=== PATIENT | female | born 1955 | race Caucasian/White ===

== ENCOUNTER → 2021-04-05 14:15 | Outpatient (CLI) | payer MEDICARE, MEDICAID, SELFPAY ==
--- NOTE | 2021-04-05 14:18 | CT_ITS ---
STUDY: LOW DOSE CT LUNG CANCER SCREENING REASON FOR EXAM: Female, 65 years old. LUNG CA SCREENING. The patient smoked half a pack per day for 51 years. RADIATION DOSAGE (If Supplied By Facility): CTDIvol = ( 1.59 ) mGy, DLP = ( 52.61 ) mGycm TECHNIQUE: No contrast was administered. Low dose technique was utilized (average mAS-38 and kVp 120). 1.25 mm axial source images with a slice interval of 1.25-mm were reconstructed in lung windows. 2.5 mm axial source images with a slice interval of 2.5-mm were reconstructed in lung windows. 5.0 mm axial source images with a slice interval of 5.0-mm were reconstructed in soft tissue windows. Nodule measured using lung windows on PACS and/or independent workstation with automated measurement of minimum and maximum diameter. Nodule measurement reported as average diameter rounded to the nearest whole number. Growth is defined as an increase ins size of greater than 1.5 mm. COMPARISON: None. NODULES: No suspicious nodules are seen. Emphysema: Hyperinflation. Diffuse emphysematous changes with bullous formation worse in the upper lobes. Minimal linear anterior scarring in the left upper lobe. Minimal linear scarring in the lower lobes. Endobronchial lesion: None Aorta: Minimal atherosclerotic plaque formation at the level of the aortic arch. Coronary arteries: Coronary artery calcification. Heart: Unremarkable Pulmonary artery: Unremarkable Mediastinal nodes: Unremarkable Other chest and abdominal findings: CT/Low Dose CT Lung Screening IMPRESSION: Lung-RADS category 2 - Continue annual screening with LDCT in 12 months. IMPORTANT NOTES FOR USE: ACR Lung-RADS Version 1.1 Assessment Categories Release Date: 2018 Category: Coded 0-4 bases on nodule(s) with highest degree of suspicion. Negative screen is defined as categories 1 and 2; a positive screen is defined as categories 3 and 4. Category 3 and 4A nodules that are unchanged on interval CT should be coded as category 2, and individuals returned to screening in 12 months. Category 4X: Category 3 or 4 nodules with additional imaging findings that increase the suspicion of lung cancer, such as spiculation, GGN that doubles in size in 1 year, enlarged lymph notes, etc. Category Modifiers: S (significant finding unrelated to lung cancer) Electronically Signed: Javy Mccormick MD at 15:01 EST , Service support ,
== END ==
PROVIDERS: PCP Family Medicine; Referring Provider Family Medicine; Visit Provider Family Medicine
DX: F17.210 Nicotine dependence, cigarettes, uncomplicated (principal); Z12.2 Encounter for screening for malignant neoplasm of respiratory organs
CPT/HCPCS: 71271

== ENCOUNTER → 2021-04-14 14:27 | Outpatient (CLI) | payer MEDICARE, MEDICAID, SELFPAY ==
--- NOTE | 2021-04-14 14:30 | BI_ITS ---
MAMMOGRAPHY - BILATERAL SCREENING REASON FOR EXAM: Female, 65 years old. Routine annual screening examination. PERTINENT HISTORY: Non-contributory. TECHNIQUE: Digital bilateral breast tony (3D mammographic acquisition) in the CC and MLO projections. 2-D mediolateral oblique (MLO) and craniocaudad (CC) views of both breasts were obtained. CAD: Full Field Digital Mammography with Computer Added Detection was performed. COMPARISON: Comparison is made with prior outside examination dated 06/16/2017. FINDINGS: Breast Composition: The breasts are heterogeneously dense, which may obscure small masses. There are no dominant masses or suspicious calcifications. Stable small benign-appearing bilateral axillary lymph nodes. No other significant abnormalities are identified. There has been no significant change since the prior study. BI/SCRN MAMM (CAD)W/TONY BILAT IMPRESSION: Stable bilateral screening mammogram. Yearly follow-up mammogram recommended. (A) ASSESSMENT CATEGORY: BIRADS Category 2: Benign. A letter regarding these results will be sent to the patient by the facility within 30 days. Approximately 10% of breast cancers are not detected by mammography. A normal mammogram should not delay biopsy of a clinically suspicious abnormality. [id number] Electronically Signed: Javy Mccormick MD at 13:59 EST , Service support ,
== END ==
PROVIDERS: PCP Family Medicine; Referring Provider Family Medicine; Visit Provider Family Medicine
DX: Z12.31 Encounter for screening mammogram for malignant neoplasm of breast (principal)
CPT/HCPCS: 77063; 77067

== ENCOUNTER → 2021-10-29 | Outpatient (CLI) | payer OTHER, MEDICAID, SELFPAY ==
[2021-10-29 11:23] LABS: Hematocrit 44.1 % (37-47); Hemoglobin 15.1 g/dL (12.0-15.0); Mean Corp Hgb Conc 34.2 g/dL (32-36); Mean Corpuscular Hgb 31.8 pg (27.0-32.0); Mean Corpuscular Volume 92.8 fL (81-99); Mean Platelet Vol. 10.2 fl (6.2-12.0); Platelet Count 246 K/mm3 (150-450); RBC Distribution Width CV 11.7 % (11.6-14.6); Red Blood Count 4.75 M/mm3 (4.2-5.4); White Blood Count 5.8 K/mm3 (4.4-11.0)
[2021-10-29 12:27] LABS: ALB/GLOB Ratio 1.4 RATIO (0.9-2.4); AST(SGOT) 13 U/L (15-37); Alanine Aminotransfer ALT/SGPT 19 U/L (13-56); Alkaline Phosphatase 68 U/L (45-117); Anion Gap 1 (5-15); BUN 7 mg/dL (7-18); BUN/Creat Ratio 9.1 RATIO (10-20); Calcium,Total 9.1 mg/dL (8.5-10.1); Chloride 105 mmol/L (98-107); Cholesterol 181 mg/dL (200); Creatinine, Serum 0.77 mg/dL (0.55-1.02); EST Glomerular Filtration Rate 80 mL/min (>60); Est Glom Filt Rate - Afr Amer 97 mL/min (>60); Globulin 2.8 g/dL (2.2-4.2); Glucose 99 mg/dL (74-106); High Density Lipoprotein 75 mg/dL; Potassium 4.3 mmol/L (3.5-5.1); Protein, Total 6.8 g/dL (6.4-8.2); Sodium Level 139 mmol/L (136-145); Triglycerides 89 mg/dL; Very Low Density Lipoprotein 18 mg/dL (5-40)
[2021-11-05 08:10] LABS: Free Kappa Light Chains 13.5 mg/L (3.3-19.4); Free Lambda Light Chains 12.5 mg/L (5.7-26.3); Vitamin B1, Thiamine 213.1 nmol/L (66.5-200.0)
== END | disposition home or self-care (01) ==
LOC: LAB 10:45
PROVIDERS: PCP Family Medicine; Referring Provider Psychiatry & Neurology Neurology; Visit Provider Psychiatry & Neurology Neurology
DX: G62.9 Polyneuropathy, unspecified (principal)
CPT/HCPCS: 36415; 80053; 80061; 81241; 82746; 83883; 84425; 85027

== ENCOUNTER → 2021-11-15 | Outpatient (CLI) | payer MEDICARE, MEDICAID, SELFPAY ==
--- NOTE | 2021-11-15 08:04 | MRI_ITS ---
STUDY: MRI BRAIN WITH AND WITHOUT CONTRAST REASON FOR EXAM: Female, 66 years old. 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 IV 13ml dotarem was administered for the contrast portion of the examination. COMPARISON: None. FINDINGS: No intracranial mass, mass effect or midline shift. No enhancing lesion. No hemorrhage, territorial infarct or acute ischemia. Normal size of the ventricles and extra-axial spaces for the patient''s age. Normal white matter tracts of the supratentorial brain. Normal bilateral basal ganglia. Normal thalami. There is no extra-axial fluid accumulation. Normal flow voids within the major intracranial circulation suggesting patency by spin echo criteria. There is no enhancing intra-axial or extra-axial abnormality. Normal sella turcica, pituitary gland, infundibular stalk, optic chiasm and hypothalamus. Normal midbrain, maryan and medulla. Normal cerebellum. Normal basal cisterns. Normal bilateral temporal bones. Normal bilateral internal auditory canals. Normal visualized paranasal sinuses. Normal calvarium and skull base. Normal visualized soft tissue structures. MRI/Brain W/WO Contrast IMPRESSION: Normal unenhanced and enhanced MRI of the brain. Electronically Signed: Geeta Madsen MD at 22:15 EDT Reading Location ID and State: [id number] / Tel , Service support ,
== END | disposition home or self-care (01) ==
LOC: MRI 08:04
PROVIDERS: PCP Family Medicine; Referring Provider Psychiatry & Neurology Neurology; Visit Provider Psychiatry & Neurology Neurology
DX: G25.0 Essential tremor (principal); Z86.79 Personal history of other diseases of the circulatory system
CPT/HCPCS: 70553; A9575

== ENCOUNTER 2021-12-10 09:58 | Emergency (ER) | payer MEDICARE, MEDICAID, SELFPAY ==
[2021-12-10] VITALS (8 sets, daily range): BP systolic 118–136; BP diastolic 73–97; PULSE 89–106; RESP 16–24; TEMP 36.7; O2SAT 87–98; BMI 21.0
--- NOTE | 2021-12-10 10:14 | EKG12_ITS ---
Test Reason : Blood Pressure : / mmHG Vent. Rate : 085 BPM Atrial Rate : 085 BPM P-R Int : 126 ms QRS Dur : 086 ms QT Int : 382 ms P-R-T Axes : 077 032 065 degrees QTc Int : 454 ms Normal sinus rhythm Low voltage QRS (limb leads) Confirmed by JOEL CORCORAN, STARR ([id number]), research editor JASMYN JOHNSON ([id number]) on 12/14/2021 8:02:20 AM Referred By: SUZETTE Confirmed By:STARR MALDONADO MD
--- NOTE | 2021-12-10 10:15 | ED.VIS.DYS ---
HPI History of Present Illness Chief Complaint: Shortness of Breath Informant: patient Onset/Context/Timing Onset: Days (5) Context: gradual and onset Timing: Continuous Quality: Positive for Wheezing Current Severity: Moderate Maximum Severity: Severe Worsened by: Exertion and Coughing Relieved by: Albuterol (a little) Associated Symptoms cough Chest Pain: Positive for Tightness Narrative Narrative: Patient started having respiratory symptoms 5 days ago, her doctor ordered a COVID test to be done at the local pharmacy it was positive, no other family members are ill currently, they were tested and were negative. She has COPD and feels like it has been flaring up. She is on no home oxygen, she has had some chest tightness but no symptoms of angina. No history of DVT or PE and she takes no anticoagulants, she had a history of mitral valve prolapse that she states resolved but no other heart problems that she knows of, and no leg pain or swelling recently. She has no pleuritic chest discomfort. Started Paxlovid couple days ago. [facility] Medical History Allergies COPD (chronic obstructive pulmonary disease) Degenerative disc disease, cervical Fibromyalgia Generalized anxiety disorder IBS (irritable bowel syndrome) Lumbar degenerative disc disease Neuropathy Stroke Home Medications albuterol sulfate 90 mcg/actuation breath activated powder inhaler 2 inh inhalation Q4H PRN Shortness Of Breath Or Wheezing 10/27/21 [History Last Taken Unknown] clorazepate dipotassium 15 mg tablet 15 mg PO DAILY PRN Anxiety 10/27/21 [History Last Taken Unknown] cyclobenzaprine 5 mg tablet 5 mg PO TID PRN Anxiety 10/27/21 [History Last Taken Unknown] fluticasone 250 mcg-salmeterol 50 mcg/dose blistr powdr for inhalation (Advair Diskus) 1 inh inhalation BID 10/27/21 [History Last Taken Unknown] fluticasone propionate 50 mcg/actuation nasal spray,suspension 1 spray intranasal DAILY PRN Allergy Symptoms 10/27/21 [History Last Taken Unknown] ame root powder 1 tablet PO DAILY 10/27/21 [History Last Taken Unknown] hydroxyzine HCl 25 mg tablet 25 mg PO .qid PRN Anxiety 10/27/21 [History Last Taken Unknown] multivitamin 1 tab PO DAILY 10/27/21 [History Last Taken Unknown] tramadol 50 mg tablet 50 mg PO DAILY PRN Pain 10/27/21 [History Last Taken Unknown] turmeric 400 mg capsule 1,500 mg PO DAILY 10/27/21 [History Last Taken Unknown] vitamin B complex 1 tab PO DAILY 10/27/21 [History Last Taken Unknown] magnesium 250 mg tablet 250 mg PO DAILY 10/28/21 [History Last Taken Unknown] zinc acetate 50 mg (zinc) capsule 50 mg PO DAILY 10/28/21 [History Last Taken Unknown] prednisone 10 mg tablet 10 mg PO UD #33 tabs 12/10/21 [Rx Last Taken Unknown] Allergy/AdvReac Type Severity Reaction Status Date / Time amitriptyline Allergy Unknown Itching Verified 12/10/21 10:11 aspirin Allergy Unknown Swelling Verified 12/10/21 10:11 bupropion Allergy Unknown Itching Verified 12/10/21 10:11 celecoxib Allergy Unknown Swelling Verified 12/10/21 10:11 duloxetine Allergy Unknown Shortness Verified 12/10/21 10:11 of breath fluoxetine Allergy Unknown Nausea Verified 12/10/21 10:11 sertraline Allergy Unknown Hives Verified 12/10/21 10:11 fluticasone AdvReac Unknown Itching Verified 12/10/21 10:11 guaifenesin AdvReac Unknown Rash Verified 12/10/21 10:11 meloxicam AdvReac Unknown dizziness Verified 12/10/21 10:11 salmeterol AdvReac Unknown Itching Verified 12/10/21 10:11 Family History (Updated 10/28/21 @ 08:28 by Kathryn Corea) Grandmother No problems noted. 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 Smoking Status: Current every day smoker tobacco type: cigarettes second hand exposure: No alcohol intake: current alcohol intake frequency: holidays/special occasions only substance use type: does not use what type of physical activity do you participate in: none grecia/sabianism: Jew seatbelt use: always ROS ROS ED Constitutional Constitutional ED: Reports body ache(s), chills, fatigue, fever(s) and malaise; Denies headache(s) Eyes Eyes: Denies change in vision or diplopia ENT ENT ED: Denies rhinorrhea or sore throat Cardiovascular Cardiovascular: Reports other Details: Chest tightness no anginal ; Denies chest pain, leg edema or palpitations Respiratory/Chest Respiratory/Chest: Reports cough, dyspnea, dyspnea on exertion and wheezing Gastrointestinal Gastrointestinal: Reports diarrhea; Denies abdominal pain, nausea or vomiting Genitourinary Genitourinary ED: Denies dysuria or hematuria Musculoskeletal Musculoskeletal: Denies back pain or neck pain Integumentary Denies abscess or rash Neurologic Neurologic: Denies headache(s), paresthesias or weakness Psychiatric Psychiatric: Denies anxiety or suicidal thoughts EXAM Physical Exam Const Vital Signs: 12/10/21 10:00 12/10/21 10:06 12/10/21 10:13 Temperature 98.1 F 98.1 F Temperature Source Oral Oral Pulse Rate 94 94 Respiratory Rate 22 H 22 H Respiratory Effort Short of Breath Labored Respiratory Depth Normal Respiratory Pattern Tachypnea Blood Pressure 119/86 H 119/86 H Blood Pressure Mean 97 97 Pulse Ox 97 97 Oxygen Delivery Method Nasal Cannula Nasal Cannula Nasal Cannula Oxygen Flow Rate (L/min) 2 2 2 12/10/21 11:06 12/10/21 10:53 12/10/21 12:27 Temperature 98.1 F Temperature Source Oral Pulse Rate 89 106 H 93 Respiratory Rate 16 24 H 18 Respiratory Effort Respiratory Depth Respiratory Pattern Tachypnea Blood Pressure 118/97 H 121/73 H Blood Pressure Mean 104 89 Pulse Ox 98 92 Oxygen Delivery Method Nasal Cannula Room Air Oxygen Flow Rate (L/min) 2 Positive well nourished and well developed Constitutional Narrative: Malaised-appearing, no distress General Appearance ED: well developed and NAD HEENT Reports moist mucous membranes normocephalic and atraumatic Eyes PERRL and EOMs intact bilaterally Neck full ROM and supple Resp Resp Narrative: Expiratory wheezing throughout with prolonged expiratory phase. Equal breath sounds bilaterally. Tachypneic, mild respiratory distress. Cardio regular rate, regular rhythm and no murmurs Rate: Negative for tachycardic GI non-tender and non-distended Auscultation: normoactive bowel sounds Palpation: soft Back/Spine no CVA tenderness General Back: other FROM Extremity normal to inspection and no calf tenderness General Extremety ED: Negative for edema, pulses abnormal or tenderness General Extremity: Negative for edema or pulses abnormal Neuro oriented x3, CN's II-XII intact bilaterally and no sensory deficits noted Sensorium / Orientation: awake and alert Motor Exam: strength 5/5 throughout Skin no rashes or lesions noted and no wounds MDM MDM MDM Narrative Medical decision making narrative: Chest x-ray 1 view on my interpretation shows hyperexpansion/COPD but no acute abnormalities. Radiology in agreement. Her EKG is unremarkable, troponin is within normal limits and her D-dimer is normal as well ruling out pulmonary embolus acutely. After nebulizer treatments, she is oxygenating better and resting at 92% on room air. When she gets up and around in the room, she desats to about 90%. She was 88% prior to this on room air. She is not on home oxygen. I think the majority of her symptoms are her COPD exacerbation, certainly she feels poorly from COVID but with regards to her breathing and pulmonary symptoms, it is more her COPD. Since she has COVID, I can get her oxygen for at home, she prefers to go home on steroids and oxygen to use as needed, she has nebulizers to use at home as needed, and I do not think admitting her to the hospital will necessarily benefit her she is comfortable with that overall plan we discussed reasons to return. Lab Data Attestation: I reviewed the patient's lab results. Labs: Laboratory Results - last 24 hr 12/10/21 12/10/21 12/10/21 10:08 10:08 10:08 WBC 4.6 RBC 4.60 Hgb 14.9 Hct 42.5 MCV 92.4 MCH 32.4 H MCHC 35.1 RDW Std Deviation 40.1 RDW Coeff of James 11.9 Plt Count 182 MPV 10.4 Immature Gran % (Auto) 0.400 Neut % (Auto) 68.8 Lymph % (Auto) 21.0 [place] % (Auto) 9.6 Eos % (Auto) 0.0 Baso % (Auto) 0.2 Absolute Neuts (auto) 3.1 Absolute Lymphs (auto) 0.96 Nucleated RBC % 0 D-Dimer Quant (PE/DVT) 0.42 Sodium 136 Potassium 4.0 Chloride 101 Carbon Dioxide 29.0 Anion Gap 6 BUN 8 Creatinine 0.74 Estim Creat Clear Calc 73.96 Est GFR (MDRD) Af Amer 102 Est GFR (MDRD) Non-Af 85 BUN/Creatinine Ratio 10.9 Glucose 119 H Calcium 9.0 Troponin I High Sens 4 Radiography Diagnostic Testing: Clinical Impression(s) from Imaging Studies Chest X-Ray 12/10/21 11:06 IMPRESSION: Hyperinflation and changes compatible with COPD. Electronically Signed: Javy Mccormick MD at 11:57 EDT , Rhythm Strip Rhythm Strip: Sinus Rhythm Rate: 85 Ectopy: None EKG Initial EKG: Attestation: I personally reviewed and interpreted this EKG as follows: Interpretation: Sinus Rhythm and No Acute Injury Pattern Comments: Normal EKG Discharge Plan Triage Chief Complaint: Shortness of Breath ED Provider: Howard Cronin Dx/Rx/DC Orders Clinical Impression: Acute exacerbation of chronic obstructive pulmonary disease, Hypoxemia, COVID-19 Instructions: Coronavirus Disease 2019 (COVID-19): Caring for Yourself or Others, ED COPD Flare Prescriptions: New prednisone 10 mg tablet 10 mg PO UD Qty: 33 0RF Rx Instructions: Take 4 tablets daily for 3 days, then 3 daily for 3 days, then 2 daily for 3 days, then 1 a day for 3 days then 1 QOD for 3 doses. No Action fluticasone propion-salmeterol [Advair Diskus] 250-50 mcg/dose blister with device 1 inh inhalation BID albuterol sulfate 90 mcg/actuation aerosol powdr breath activated 2 inh inhalation Q4H PRN (Reason: Shortness Of Breath Or Wheezing) clorazepate dipotassium 15 mg tablet 15 mg PO DAILY PRN (Reason: Anxiety) cyclobenzaprine 5 mg tablet 5 mg PO TID PRN (Reason: Anxiety) fluticasone propionate 50 mcg/actuation spray,suspension 1 spray intranasal DAILY PRN (Reason: Allergy Symptoms) Rx Instructions: administer into each nostril ame root powder tablet 1 tablet PO DAILY hydroxyzine HCl 25 mg tablet 25 mg PO .qid PRN (Reason: Anxiety) tramadol 50 mg tablet 50 mg PO DAILY PRN (Reason: Pain) multivitamin Tablet 1 tab PO DAILY turmeric 400 mg capsule 1,500 mg PO DAILY vitamin B complex Tablet 1 tab PO DAILY zinc acetate 50 mg (zinc) capsule 50 mg PO DAILY magnesium 250 mg tablet 250 mg PO DAILY Primary Care Provider: Cheyenne Richards Referrals: Cheyenne Richards MD [Primary Care Provider] - 10-14 Days if not better Activity Restrictions/Additional Instructions: Try to get a home portable pulse oximeter and closely watch your oxygen levels periodically. If you stay below 90% for more than a minute or so, and/or you are feeling like your breathing is getting worse despite turning your oxygen up to 3 L, using nebulizer treatments, and taking your prednisone, return to the emergency department for further evaluation. Currently, CDC recommendations state that you should stay home through day 5 of symptoms, then as long as symptoms are improving, if you need to go to work or somewhere else you may for days 6-10 as long as you are wearing a tight fitting N95 mask the entire time. If you are feeling better after day 10 you may resume life is normal. You already received IV version of prednisone today, start your prescription for prednisone tomorrow 12/11. Continue taking your Paxlovid as prescribed until finished. Disposition Disposition: Home, Self Care
[2021-12-10] MEDS: MethylPREDNISolone 125 MG/2 ML Vial IV (10:24)
[2021-12-10] MEDS: 0.9% Normal Saline 1,000 ML 150 ML IV (10:24)
[2021-12-10 10:28] LABS: Absolute Lymphocyte Count 0.96 X10^3/uL (0.83-4.51); Absolute Neutrophil Count 3.1 X10^3/uL (2.0-7.7); Basophil# 0.01 X10^3/uL; Basophil% 0.2 % (0-1); Hematocrit 42.5 % (37-47); Hemoglobin 14.9 g/dL (12.0-15.0); Lymphocyte # 0.96 X10^3/ul (0.83-4.51); Mean Corp Hgb Conc 35.1 g/dL (32-36); Mean Corpuscular Hgb 32.4 pg (27.0-32.0); Mean Corpuscular Volume 92.4 fL (81-99); Mean Platelet Vol. 10.4 fl (6.2-12.0); Monocyte# 0.44 X10^3/uL; Monocyte% 9.6 % (0-10); NRBC Flagged by Analyzer 0 % (0-5); Neutrophil # 3.14 X10^3/uL (2.7-7.7); Neutrophil % 68.8 % (47-70); Platelet Count 182 K/mm3 (150-450); RBC Distribution Width CV 11.9 % (11.6-14.6); RBC Distribution Width SD 40.1 fl (35.1-43.9); White Blood Count 4.6 K/mm3 (4.4-11.0)
[2021-12-10 10:40] LABS: D-Dimer Quantitative (DVT/PE) 0.42 FEU/ug/m (0.27-0.49)
[2021-12-10 10:41] LABS: Anion Gap 6 (5-15); BUN 8 mg/dL (7-18); BUN/Creat Ratio 10.9 RATIO (10-20); Chloride 101 mmol/L (98-107); Creatinine, Serum 0.74 mg/dL (0.55-1.02); EST Glomerular Filtration Rate 85 mL/min (>60); Est Glom Filt Rate - Afr Amer 102 mL/min (>60); Estimated Creatinine Clearance 73.96 ml/min; Glucose 119 mg/dL (74-106); Sodium Level 136 mmol/L (136-145); Troponin-I HS 4 pg/mL (3.0-54.0)
[2021-12-10] MEDS: Albuterol 2.5 MG/3 ML VIAL.NEB. INHALATION ×3 (10:53)
--- NOTE | 2021-12-10 11:06 | RAD_ITS ---
STUDY: X-RAY CHEST REASON FOR EXAM: Female, 66 years old. covid, copd, sob TECHNIQUE: Single AP portable view of the chest. COMPARISON: None. FINDINGS: EKG electrodes are seen. There is hyperinflation of the lungs consistent with chronic obstructive lung disease (COPD). There is no demonstrated pleural abnormality. Normal size heart. Normal mediastinum and osman. There is prominence of the pulmonary hilar arteries without peripheral pulmonary vascular congestion, suggesting pulmonary hypertension. There is atherosclerotic calcification of the aortic arch with tortuosity. Normal visualized thoracic spine. Prior fusion of the lower cervical spine. There is no demonstrated abnormality of the visualized soft tissue structures of the upper abdomen. RAD/Chest 1 View (Portable) IMPRESSION: Hyperinflation and changes compatible with COPD. Electronically Signed: Javy Mccormick MD at 11:57 EDT ,
--- NOTE | 2021-12-10 13:16 | CM.ED ---
Addendum entered by Beverly Blackburn 12/10/21 14:15: Pt qualified for Home Oxygen. JOSE completed [employer] and faxed to [facility]. SW placed a call to Toshia at [facility] and let her know pt will be discharged from the ED with tank from the ED. Toshia states understanding, states they do go to [place]. SW in to speak with pt. Pt agreeable to using [employer]. SW informed pt that she will need to call [facility] when she gets home and they will come out to her house to get Oxygen set up in the home. Pt states understanding. JOSE updated RN. Beverly Blackburn O[employer] G[employer] RECRUITER, MANAGER CORPORATE Original Note: Social Work Note Reason for Referral: Pt is COVID positive, will need Oxygen at discharge. JOSE reviewed chart. Per MD documentation, the squad reports states that pt was at 88% during transport to [facility]. JOSE placed a call to [facility] and spoke with Toshia, Hospital liaison. Toshia states [facility] will need to get a new set of vitals, cannot use the vitals from the ED squad report. JOSE called manager media Loren Amlanzar regarding pt's oxygen. Loren Almanzar states that RN will need to do Home Oxygen qualification testing and if pt does not drop below 88% then pt does not qualify for Oxygen and insurance will not pay for Oxygen. [facility] will still need to see pt's vitals and pt will need to qualify regardless as just because pt has COVID, doesn't automatically mean pt gets Oxygen. Pt could pay privately for Oxygen if she wanted to. Order placed for Home Oxygen Qualification and updated RN. JOSE waiting for Home Oxygen Qualification to be completed. Beverly Blackburn O[employer] AND G[employer] RECRUITER, MANAGER CORPORATE
== END 2021-12-10 14:29 | disposition home or self-care (01) ==
PROVIDERS: Emergency Provider Emergency Medicine; PCP Family Medicine; Visit Provider Emergency Medicine
DX: J44.1 Chronic obstructive pulmonary disease with (acute) exacerbation (principal); U07.1 COVID-19; M79.7 Fibromyalgia; F41.1 Generalized anxiety disorder; K58.9 Irritable bowel syndrome, unspecified; M51.36 Other intervertebral disc degeneration, lumbar region; G62.9 Polyneuropathy, unspecified; Z86.73 Personal history of transient ischemic attack (TIA), and cerebral infarction without residual deficits; Z79.899 Other long term (current) drug therapy; M50.30 Other cervical disc degeneration, unspecified cervical region; F17.210 Nicotine dependence, cigarettes, uncomplicated; R09.02 Hypoxemia
CPT/HCPCS: 71045; 80048; 84484; 85025; 85379; 93005; 94640; 96361; 96374; 99285; J7030; A4216

== ENCOUNTER → 2022-05-20 | Outpatient (CLI) | payer MEDICARE, MEDICAID, SELFPAY ==
[2022-05-20 17:32] LABS: Absolute Lymphocyte Count 2.06 X10^3/uL (0.83-4.51); Absolute Neutrophil Count 3.5 X10^3/uL (2.0-7.7); Basophil# 0.05 X10^3/uL; Basophil% 0.8 % (0-1); Eosinophil# 0.14 X10^3/uL; Eosinophils% 2.2 % (0-5); Hematocrit 44.2 % (37-47); Hemoglobin 14.6 g/dL (12.0-15.0); Lymphocyte # 2.06 X10^3/ul (0.83-4.51); Lymphocyte % 32.8 % (19-41); Mean Corpuscular Hgb 30.7 pg (27.0-32.0); Mean Corpuscular Volume 92.9 fL (81-99); Mean Platelet Vol. 10.9 fl (6.2-12.0); Monocyte# 0.49 X10^3/uL; Monocyte% 7.8 % (0-10); NRBC Flagged by Analyzer 0 % (0-5); Neutrophil # 3.53 X10^3/uL (2.7-7.7); Neutrophil % 56.2 % (47-70); Platelet Count 261 K/mm3 (150-450); RBC Distribution Width CV 11.6 % (11.6-14.6); RBC Distribution Width SD 39.8 fl (35.1-43.9); Red Blood Count 4.76 M/mm3 (4.2-5.4); White Blood Count 6.3 K/mm3 (4.4-11.0)
[2022-05-20 17:41] LABS: ALB/GLOB Ratio 1.6 RATIO (0.9-2.4); AST(SGOT) 18 U/L (15-37); Alanine Aminotransfer ALT/SGPT 28 U/L (13-56); Albumin, Serum 4.1 g/dL (3.2-5.0); Alkaline Phosphatase 70 U/L (45-117); Anion Gap 7 (5-15); BUN 8 mg/dL (7-18); BUN/Creat Ratio 10.4 RATIO (10-20); Chloride 102 mmol/L (98-107); Creatinine, Serum 0.77 mg/dL (0.55-1.02); EST Glomerular Filtration Rate 80 mL/min (>60); Est Glom Filt Rate - Afr Amer 97 mL/min (>60); Globulin 2.6 g/dL (2.2-4.2); Glucose 94 mg/dL (74-106); Protein, Total 6.7 g/dL (6.4-8.2); Sodium Level 139 mmol/L (136-145)
== END | disposition home or self-care (01) ==
LOC: BFHLAB 14:13
PROVIDERS: PCP Family Medicine; Visit Provider Family Medicine
DX: Z00.00 Encounter for general adult medical examination without abnormal findings (principal); J44.9 Chronic obstructive pulmonary disease, unspecified; F17.200 Nicotine dependence, unspecified, uncomplicated; E55.9 Vitamin D deficiency, unspecified
CPT/HCPCS: 36415; 80053; 82306; 85025

== ENCOUNTER → 2022-06-06 | Outpatient (CLI) | payer MEDICARE, MEDICAID, SELFPAY ==
--- NOTE | 2022-06-06 16:23 | PFTCOMP ---
COMPLETE PULMONARY FUNCTION TEST INTERPRETATION Brief HPI: Patient is a 67-year-old female, currently under the care of Dr. Richards, who presents to [facility] for complete pulmonary function tests secondary to diagnosis of COPD. Respiratory therapist reports good effort and reproducible results. Patient did use bronchodilators 2 and half hours before testing, possibly blunting any bronchodilator response Interpretation: Forced expiration spirometry shows a very severe large airways obstructive ventilatory defect with an FEV1 of 32% predicted. There is no significant bronchodilator response by strict ATS criteria. Spirograms are of good quality and plateau slowly, indicating slowly emptying areas of the lungs. The respiratory flow volume loop shows decreased expiratory flow rates at all lung volumes consistent with airway obstruction. Lung volumes by body plethysmography show an elevated total lung capacity at 6.09 L, 112% predicted. FRC and RV are elevated out of proportion. Lung volume measurements are consistent with hyperinflation and air-trapping. Diffusion capacity by carbon monoxide is decreased at 57% predicted. The airway resistance is elevated. No previous pulmonary function tests were available for review. Impression: Irreversible very severe large airways obstructive ventilatory defect resulting in air trapping with hyperinflation and a symmetric reduction of diffusion capacity
== END | disposition home or self-care (01) ==
LOC: PSN 07:58
PROVIDERS: PCP Family Medicine; Visit Provider Family Medicine
DX: J44.9 Chronic obstructive pulmonary disease, unspecified (principal)
CPT/HCPCS: 94060; 94726; 94729

== ENCOUNTER 2022-06-07 21:28 | Emergency (ER) | payer MEDICARE, MEDICAID, SELFPAY ==
[2022-06-07 21:28] VITALS: BP 129/73; PULSE 119; RESP 31; TEMP 36.4; O2SAT 97; BMI 23.4
[2022-06-07 21:33] VITALS: O2SAT 96
--- NOTE | 2022-06-07 21:47 | EKG12_ITS ---
Test Reason : DYSRHYTHMIA Blood Pressure : / mmHG Vent. Rate : 109 BPM Atrial Rate : 109 BPM P-R Int : 118 ms QRS Dur : 084 ms QT Int : 338 ms P-R-T Axes : 060 059 068 degrees QTc Int : 455 ms Sinus tachycardia Low voltage QRS Borderline ECG Confirmed by JOEL CORCORAN, STARR ([id number]), continuity editor CHUCKY SARAVIA ([id number]) on 06/08/2022 1:49:16 PM Referred By: WESTON Confirmed By:STARR MALDONADO MD
[2022-06-07 22:10] VITALS: PULSE 117; RESP 18; RESP 20; O2SAT 96
[2022-06-07] MEDS: Albuterol 2.5 MG/3 ML VIAL.NEB. INHALATION (22:10)
[2022-06-07 22:17] LABS: Absolute Lymphocyte Count 2.46 X10^3/uL (0.83-4.51); Absolute Neutrophil Count 7.6 X10^3/uL (2.0-7.7); Basophil# 0.06 X10^3/uL; Basophil% 0.6 % (0-1); Hemoglobin 14.8 g/dL (12.0-15.0); Lymphocyte # 2.46 X10^3/ul (0.83-4.51); Lymphocyte % 22.7 % (19-41); Mean Corp Hgb Conc 33.6 g/dL (32-36); Mean Corpuscular Volume 92.1 fL (81-99); Mean Platelet Vol. 10.8 fl (6.2-12.0); Monocyte# 0.72 X10^3/uL; Monocyte% 6.6 % (0-10); NRBC Flagged by Analyzer 0 % (0-5); Neutrophil # 7.55 X10^3/uL (2.7-7.7); Neutrophil % 69.6 % (47-70); Platelet Count 283 K/mm3 (150-450); RBC Distribution Width CV 11.7 % (11.6-14.6); RBC Distribution Width SD 39.7 fl (35.1-43.9); Red Blood Count 4.78 M/mm3 (4.2-5.4); White Blood Count 10.8 K/mm3 (4.4-11.0)
--- NOTE | 2022-06-07 22:25 | RAD_ITS ---
EXAM: XR CHEST, 2 VIEWS CLINICAL INDICATION: Dyspnea TECHNIQUE: Frontal and lateral views of the chest. This report was created using [employer] report generation technology. COMPARISON: December 10, 2021. FINDINGS: LUNGS AND PLEURAL SPACES: The lungs remain hyperinflated with increased lucency in the upper lung saravia and mildly increased interstitial markings in the lower lung saravia. No pneumothorax. No effusion. HEART: Unremarkable. Cardiac silhouette not enlarged. MEDIASTINUM: Stable appearance of mediastinal and hilar contours. Mild peripheral calcification of the aortic arch is again noted. BONES/JOINTS: Postoperative changes of the cervicothoracic junction are partially included. SOFT TISSUES: Unremarkable. RAD/Chest PA and Lateral IMPRESSION: Stable chest.COPD. Electronically Signed: Blanche Patel MD at 22:52 EST ,
[2022-06-07 22:32] VITALS: BP 123/84; PULSE 116
[2022-06-07] MEDS: predniSONE 20 MG Tablet 60 MG PO (22:32)
[2022-06-07 22:34] LABS: D-Dimer Quantitative (DVT/PE) 0.35 FEU/ug/m (0.27-0.49)
[2022-06-07 22:38] LABS: Anion Gap 8 (5-15); BUN 15 mg/dL (7-18); BUN/Creat Ratio 13.8 RATIO (10-20); Calcium,Total 9.3 mg/dL (8.5-10.1); Chloride 105 mmol/L (98-107); Creatinine, Serum 1.09 mg/dL (0.55-1.02); EST Glomerular Filtration Rate 54 mL/min (>60); Est Glom Filt Rate - Afr Amer 65 mL/min (>60); Estimated Creatinine Clearance 50.04 ml/min; Glucose 193 mg/dL (74-106); Potassium 3.9 mmol/L (3.5-5.1); Sodium Level 141 mmol/L (136-145); Troponin-I HS 8 pg/mL (3.0-54.0)
[2022-06-07 22:44] LABS: BNP,B-Type NATRIURETIC PEPTIDE 16.9 pg/mL (0-100)
--- NOTE | 2022-06-07 23:03 | EDS_ITS ---
HPI History of Present Illness Chief Complaint: Shortness of Breath Informant: patient Onset/Context/Timing Onset: Weeks (2) Context: gradual Timing: Continuous Quality: Positive for Dyspnea on exertion Worsened by: Exertion and Lying flat Relieved by: Nothing Associated Symptoms Negative for cough, rhinorrhea, post nasal drip, ear pain, fever, sore throat, chills or sweats Chest Pain: Positive for Pressure (Heaviness) Narrative Narrative: Patient presents with shortness of breath that has been getting progressively worse over the last 2 weeks. Patient states it is gradually gotten worse. Patient states her breathing is worse with any exertion especially with going up steps. Patient states her breathing is also worse when she lays flat. Patient admits to some chest pain. Patient describes this as a heaviness. Patient states it is over the substernal area and radiates into her back. Patient states she does get some dizziness and lightheadedness at times as well. Patient denies any cough. Patient denies any fevers or chills. PE Risk Factors: Negative for Cancer, OCP + Smoking + > 35, Prior DVT or PE, Recent immobilization, Recent surgery or Recent travel [facility] Medical History Allergies COPD (chronic obstructive pulmonary disease) Degenerative disc disease, cervical Fibromyalgia Generalized anxiety disorder IBS (irritable bowel syndrome) Lumbar degenerative disc disease Neuropathy Stroke Home Medications albuterol sulfate 90 mcg/actuation breath activated powder inhaler 2 inh inhalation Q4H PRN Shortness Of Breath Or Wheezing 10/27/21 [History Last Taken Unknown] clorazepate dipotassium 15 mg tablet 15 mg PO DAILY PRN Anxiety 10/27/21 [History Last Taken Unknown] cyclobenzaprine 5 mg tablet 5 mg PO TID PRN Anxiety 10/27/21 [History Last Taken Unknown] fluticasone 250 mcg-salmeterol 50 mcg/dose blistr powdr for inhalation (Advair Diskus) 1 inh inhalation BID 10/27/21 [History Last Taken Unknown] fluticasone propionate 50 mcg/actuation nasal spray,suspension 1 spray intranasal DAILY PRN Allergy Symptoms 10/27/21 [History Last Taken Unknown] ame root powder 1 tablet PO DAILY 10/27/21 [History Last Taken Unknown] hydroxyzine HCl 25 mg tablet 25 mg PO .qid PRN Anxiety 10/27/21 [History Last Taken Unknown] multivitamin 1 tab PO DAILY 10/27/21 [History Last Taken Unknown] tramadol 50 mg tablet 50 mg PO DAILY PRN Pain 10/27/21 [History Last Taken Unknown] turmeric 400 mg capsule 1,500 mg PO DAILY 10/27/21 [History Last Taken Unknown] vitamin B complex 1 tab PO DAILY 10/27/21 [History Last Taken Unknown] magnesium 250 mg tablet 250 mg PO DAILY 10/28/21 [History Last Taken Unknown] propranolol 10 mg tablet 10 mg PO DAILY #30 tabs 03/07/22 [Rx Last Taken Unknown] prednisone 20 mg tablet 60 mg PO DAILY #12 TABLETS 06/07/22 [Rx Last Taken Unknown] Allergy/AdvReac Type Severity Reaction Status Date / Time amitriptyline Allergy Unknown Itching Verified 06/07/22 21:33 aspirin Allergy Unknown Swelling Verified 06/07/22 21:33 bupropion Allergy Unknown Itching Verified 06/07/22 21:33 celecoxib Allergy Unknown Swelling Verified 06/07/22 21:33 duloxetine Allergy Unknown Shortness Verified 06/07/22 21:33 of breath fluoxetine Allergy Unknown Nausea Verified 06/07/22 21:33 sertraline Allergy Unknown Hives Verified 06/07/22 21:33 fluticasone AdvReac Unknown Itching Verified 06/07/22 21:33 guaifenesin AdvReac Unknown Rash Verified 06/07/22 21:33 meloxicam AdvReac Unknown dizziness Verified 06/07/22 21:33 salmeterol AdvReac Unknown Itching Verified 06/07/22 21:33 Family History Grandmother No problems noted. 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 Smoking Status: Current every day smoker tobacco type: cigarettes second hand exposure: No alcohol intake: current alcohol intake frequency: holidays/special occasions only substance use type: does not use what type of physical activity do you participate in: none grecia/hinduism: Mormonism seatbelt use: always ROS ROS ED Constitutional Constitutional ED: Denies chills or fever(s) Eyes Eyes: Denies blurry vision or change in vision ENT ENT ED: Denies rhinorrhea or sore throat Cardiovascular Cardiovascular: Reports chest pain and palpitations Respiratory/Chest Respiratory/Chest: Reports dyspnea; Denies cough Gastrointestinal Gastrointestinal: Denies nausea or vomiting Genitourinary Genitourinary ED: Denies dysuria or hematuria Musculoskeletal Musculoskeletal: Reports back pain; Denies neck pain Integumentary Denies abscess or rash Neurologic Neurologic: Reports weakness; Denies headache(s) Allergic/Immunologic Allergic/Immunologic ED: Denies mouth swelling or urticaria EXAM Physical Exam Const Vital Signs: 06/07/22 21:28 06/07/22 21:33 06/07/22 22:32 Temperature 97.6 F L Temperature Source Temporal Pulse Rate 119 H 116 H Respiratory Rate 31 H Respiratory Effort Short of Breath Respiratory Depth Respiratory Pattern Blood Pressure 129/73 H 123/84 H Blood Pressure Mean 91 97 Pulse Ox 97 Oxygen Delivery Method Room Air Room Air 06/07/22 22:10 06/07/22 22:10 Temperature Temperature Source Pulse Rate 117 H Respiratory Rate 20 H 18 Respiratory Effort Normal Non-Labored Short of Breath Respiratory Depth Normal Respiratory Pattern Normal Normal Blood Pressure Blood Pressure Mean Pulse Ox 96 Oxygen Delivery Method Room Air Positive well nourished and well developed General Appearance ED: well developed and NAD HEENT Reports moist mucous membranes Neck supple and no JVD Resp normal respiratory effort Auscultation: diminished lung sounds diffuse Cardio regular rate, regular rhythm and no murmurs GI normal to inspection, nondistended, normoactive bowel sounds and non-tender Palpation: soft Extremity normal to inspection General Extremety ED: Negative for edema or tenderness General Extremity: Negative for edema Neuro oriented x3, CN's II-XII intact bilaterally and no sensory deficits noted Sensorium / Orientation: alert Motor Exam: strength 5/5 throughout Psych mental status grossly normal Skin no rashes or lesions noted MDM MDM MDM Narrative Medical decision making narrative: Differential diagnosis includes COPD exacerbation, pneumonia, congestive heart failure, cardiac ischemia, pulmonary embolism, pneumothorax, and viral illness. CBC will be obtained to assess for leukocytosis and anemia. D-dimer will be obtained to assess for pulmonary embolism. Basic metabolic profile will be obtained to assess for electrolyte abnormality and renal function. High- sensitivity troponin will be obtained to assess for cardiac ischemia. BNP will be obtained to assess for congestive heart failure. EKG will be obtained to assess for cardiac ischemia and cardiac dysrhythmia. Chest x-ray will be obtained to assess for pneumonia, pneumothorax, and congestive heart failure. COVID-19 rapid antigen will be obtained to assess for COVID infection. Influenza A and influenza B antigens will be obtained to assess for influenza infection. Lab Data Lab results narrative: CBC was reviewed and was within normal limits. Basic metabolic profile was reviewed and showed a minimally elevated creatinine of 1.09. Glucose was also slightly elevated at 193. D-dimer was reviewed and was normal. High- sensitivity troponin was reviewed and was normal. BNP was reviewed and was normal. COVID-19 rapid antigen was reviewed and was negative. Influenza A and influenza B antigens were reviewed and were negative. Labs: Laboratory Results - last 24 hr 06/07/22 06/07/22 06/07/22 21:10 21:10 21:10 WBC 10.8 RBC 4.78 Hgb 14.8 Hct 44.0 MCV 92.1 MCH 31.0 MCHC 33.6 RDW Std Deviation 39.7 RDW Coeff of James 11.7 Plt Count 283 MPV 10.8 Immature Gran % (Auto) 0.500 Neut % (Auto) 69.6 Lymph % (Auto) 22.7 [place] % (Auto) 6.6 Eos % (Auto) 0.0 Baso % (Auto) 0.6 Absolute Neuts (auto) 7.6 Absolute Lymphs (auto) 2.46 Nucleated RBC % 0 D-Dimer Quant (PE/DVT) 0.35 Sodium 141 Potassium 3.9 Chloride 105 Carbon Dioxide 28.0 Anion Gap 8 BUN 15 Creatinine 1.09 H Estim Creat Clear Calc 50.04 Est GFR (MDRD) Af Amer 65 Est GFR (MDRD) Non-Af 54 L BUN/Creatinine Ratio 13.8 Glucose 193 H Calcium 9.3 Troponin I High Sens 8 B-Natriuretic Peptide 06/07/22 21:10 WBC RBC Hgb Hct MCV MCH MCHC RDW Std Deviation RDW Coeff of James Plt Count MPV Immature Gran % (Auto) Neut % (Auto) Lymph % (Auto) [place] % (Auto) Eos % (Auto) Baso % (Auto) Absolute Neuts (auto) Absolute Lymphs (auto) Nucleated RBC % D-Dimer Quant (PE/DVT) Sodium Potassium Chloride Carbon Dioxide Anion Gap BUN Creatinine Estim Creat Clear Calc Est GFR (MDRD) Af Amer Est GFR (MDRD) Non-Af BUN/Creatinine Ratio Glucose Calcium Troponin I High Sens B-Natriuretic Peptide 16.9 Radiography Chest X-Ray - ED: 2 View, Read by ED Physician, Read by Radiologist and No Acute Disease Diagnostic Testing: Clinical Impression(s) from Imaging Studies Chest X-Ray 06/07/22 22:25 IMPRESSION: Stable chest.COPD. Electronically Signed: Blanche Patel MD at 22:52 EST , PA and lateral chest x-ray was obtained. There are 2 views. On my independent interpretation, lung saravia are clear. There is normal cardiac silhouette. Bony thorax is normal. There is no acute process noted. Radiologist also interpreted the x-ray and agrees. EKG Initial EKG: Attestation: I personally reviewed and interpreted this EKG as follows: Interpretation: Sinus Tachycardia (109) Comments: EKG was obtained. On my interpretation, it showed a sinus tachycardia with a rate of 109. [place] interval, QRS interval, and QTc intervals were all normal. [place] was normal. There are no acute ST or T wave changes. Prior EKG tracings: available for review Prior: Unchanged (12/10/2021) Treatment and Re-Evaluation Narrative: Patient was given albuterol aerosol here. Patient was given a dose of prednisone here. Patient is feeling better on reevaluation. Patient was given a prescription for prednisone. Patient was instructed to continue using her inhalers as previously prescribed. Patient was instructed to follow-up with her primary care physician in 5 to 7 days for reevaluation. Patient understood and was agreeable with the plan. All questions were answered. Discharge Plan Triage Chief Complaint: Shortness of Breath ED Provider: Yann Phoenix Dx/Rx/DC Orders Clinical Impression: COPD with acute exacerbation, Dyspnea Instructions: ED COPD Flare Prescriptions: New prednisone 20 mg tablet 60 mg PO DAILY Qty: 12 0RF No Action fluticasone propion-salmeterol [Advair Diskus] 250-50 mcg/dose blister with device 1 inh inhalation BID albuterol sulfate 90 mcg/actuation aerosol powdr breath activated 2 inh inhalation Q4H PRN (Reason: Shortness Of Breath Or Wheezing) clorazepate dipotassium 15 mg tablet 15 mg PO DAILY PRN (Reason: Anxiety) cyclobenzaprine 5 mg tablet 5 mg PO TID PRN (Reason: Anxiety) fluticasone propionate 50 mcg/actuation spray,suspension 1 spray intranasal DAILY PRN (Reason: Allergy Symptoms) Rx Instructions: administer into each nostril ame root powder tablet 1 tablet PO DAILY hydroxyzine HCl 25 mg tablet 25 mg PO .qid PRN (Reason: Anxiety) tramadol 50 mg tablet 50 mg PO DAILY PRN (Reason: Pain) multivitamin Tablet 1 tab PO DAILY turmeric 400 mg capsule 1,500 mg PO DAILY vitamin B complex Tablet 1 tab PO DAILY magnesium 250 mg tablet 250 mg PO DAILY propranolol 10 mg tablet 10 mg PO DAILY Qty: 30 4RF Primary Care Provider: Cheyenne Richards Referrals: Cheyenne Richards MD [Primary Care Provider] - 3-5 Days Disposition Disposition: Home, Self Care
[2022-06-07 23:31] VITALS: BP 110/69; PULSE 74; RESP 17; O2SAT 99
== END 2022-06-07 23:47 | disposition home or self-care (01) ==
PROVIDERS: Emergency Provider Emergency Medicine; PCP Family Medicine; Visit Provider Emergency Medicine
DX: J44.1 Chronic obstructive pulmonary disease with (acute) exacerbation (principal); R06.00 Dyspnea, unspecified; F17.210 Nicotine dependence, cigarettes, uncomplicated; Z86.73 Personal history of transient ischemic attack (TIA), and cerebral infarction without residual deficits
CPT/HCPCS: 71046; 80048; 83880; 84484; 85025; 85379; 87428; 93005; 94640; 99252; 99285; G0463

== ENCOUNTER → 2022-06-08 | Outpatient (CLI) | payer MEDICARE, MEDICAID, SELFPAY ==
--- NOTE | 2022-06-08 12:01 | CT_ITS ---
EXAM: CT CHEST, LUNG CANCER SCREENING WITHOUT INTRAVENOUS CONTRAST CLINICAL INDICATION: COPD TECHNIQUE: Helically acquired images were obtained of the chest without intravenous contrast using low dose (LDCT) lung cancer screening protocol. This CT exam was performed using one or more of the following dose reduction techniques: automated exposure control, adjustment of the mA and/or kV according to patient size, and/or use of iterative reconstruction technique. This report was created using [employer] report generation technology. COMPARISON: 04/05/2021 FINDINGS: LUNGS AND PLEURAL SPACES: There are moderate to severe emphysematous changes seen throughout both lungs which are stable. There is scarring seen within the lung bases. No mass. No pleural effusion or thickening. No pneumothorax. HEART: Unremarkable. Heart size is normal. No pericardial effusion. No significant coronary artery calcifications. MEDIASTINUM: Unremarkable. No mediastinal or hilar adenopathy. Esophagus is unremarkable. No hiatal hernia. THYROID: Unremarkable. No thyroid lesions. BONES/JOINTS: Unremarkable. No suspicious lytic or blastic abnormality. VASCULATURE: Unremarkable. Thoracic aorta is non-dilated. LYMPH NODES: Unremarkable. No enlarged lymph nodes. CT/Low Dose CT Lung Screening IMPRESSION: 1. Lung-RADS score: 1S - Additional clinically significant or potentially clinically significant findings are described. Recommend continued annual screening with low-dose CT (LDCT) in 12 months. 2. No acute pulmonary abnormality. There has been no change from the reference examination. 3. Moderate to severe emphysematous changes seen throughout both lungs which are stable. Electronically Signed: Nimesh Rios MD at 18:59 [facility] ,
[2022-06-08 12:48] VITALS: PULSE 100; PULSE 108; PULSE 112; PULSE 113; PULSE 116; PULSE 88; PULSE 92; PULSE 99; O2SAT 88; O2SAT 90; O2SAT 92; O2SAT 94; O2SAT 96; O2SAT 97; O2SAT 98
--- NOTE | 2022-06-09 05:53 | PCM.PSN.6M ---
PSN 6 Minute Walk Test 6 Minute Walk Test 6 Minute Walk Test: 6 Minute Walk Test PSN:6-Minute Walk Test Start: 06/08/22 12:48 Freq: Status: Active Protocol: [id number].6MINW Document 06/08/22 12:48 JACKSONPRASHANT (Rec: 06/08/22 12:51 JACKSONON [id number]) 6 Minute Walk Test Date Performed 06/08/22 Time Performed 12:30 Height 5 ft 7 in Weight: 65.771 kg Weight in Pounds 145.[address]: Cheyenne Richards Assistive device used: None Pre-test Oxygen Delivery Method Room Air Pulse Ox (%) 94 Pulse Rate (60-100 beats/min) 88 Dyspnea Barb Scale (0-10) 0 Exertion Barb Scale (6-20) 6 1st minute Oxygen Delivery Method Room Air Pulse Ox (%) 94 Pulse Rate (60-100 beats/min) 99 2nd minute Oxygen Delivery Method Room Air Pulse Ox (%) 88 Pulse Rate (60-100 beats/min) 108 H 3rd minute Oxygen Flow Rate (L/min) (L/min) 2 Oxygen Delivery Method Nasal Cannula Pulse Ox (%) 97 Pulse Rate (60-100 beats/min) 100 4th minute Oxygen Flow Rate (L/min) (L/min) 2 Oxygen Delivery Method Nasal Cannula Pulse Ox (%) 96 Pulse Rate (60-100 beats/min) 112 H 5th minute Oxygen Flow Rate (L/min) (L/min) 2 Oxygen Delivery Method Nasal Cannula Pulse Ox (%) 92 Pulse Rate (60-100 beats/min) 113 H 6th minute Oxygen Flow Rate (L/min) (L/min) 2 Oxygen Delivery Method Nasal Cannula Pulse Ox (%) 90 Pulse Rate (60-100 beats/min) 116 H Dyspnea Barb Scale (0-10) 4 Exertion Barb Scale (6-20) 14 Post-test Oxygen Flow Rate (L/min) (L/min) 2 Oxygen Delivery Method Nasal Cannula Pulse Ox (%) 98 Pulse Rate (60-100 beats/min) 92 Full Laps Walked 19 Partial Lap, Number of Tiles Walked 10 Total Distance Walked (ft) 1131 Interpretation Interpretation: The patient was noted to be 94% on room air at rest. However, in the second minute patient desaturated to 88% and had to be placed on 2 L nasal cannula. Patient improved to 97%, but did desaturate as low as 90% with continued ambulation. In total, the patient traveled 1131 feet over the course of 6 minutes with no assistive devices and 1 break. These findings are consistent with a respiratory limitation exercise tolerance. Recommendations Recommendations: The patient requires no supplemental oxygen at rest, but should be using 2 L/min nasal cannula with any exertion.
== END | disposition home or self-care (01) ==
LOC: PSN 11:59
PROVIDERS: PCP Family Medicine; Visit Provider Family Medicine
DX: F17.210 Nicotine dependence, cigarettes, uncomplicated (principal); J44.9 Chronic obstructive pulmonary disease, unspecified
CPT/HCPCS: 71271; 94618

== ENCOUNTER → 2022-07-08 | Outpatient (CLI) | payer MEDICARE, MEDICAID, SELFPAY | END | disposition home or self-care (01) | LOC: PSN 08:51 | PROVIDERS: PCP Family Medicine; Referring Provider Family Medicine; Visit Provider Family Medicine | DX: R00.0 Tachycardia, unspecified (principal) | CPT/HCPCS: 93225; 93226 ==

== ENCOUNTER → 2023-04-03 | Outpatient (CLI) | payer MEDICARE, MEDICAID, SELFPAY ==
--- NOTE | 2023-04-03 10:48 | STEWCON_ITS ---
Reason For Study: SOB Stress Results Protocol: Leonard Protocol WITH DEFINITY Maximum Predicted HR: 155 bpm Target HR: 132 bpm % Maximum Predicted HR: 95 % DurationHeart Rate Stage (mm:ss) (bpm) BP Comment BASELINE 86 112/78 STAGE 1 3:00 131 142/70SOB NOTED 1:30 MINS IN TO STAGE STAGE 2 1:00 148 / INCREASED SOB, NO CHEST PAIN RECOVERY 103 118/824 CC DEFINITY GIVEN FOR TEST Stress Duration: 4:00 mm:ss Maximum Stress HR: 148 bpm Baseline Echocardiogram Findings The estimated ejection fraction is 60 %. Postexercise EF appears to be around 55%. Stress Echo Wall motion Data Resting WM Intermediate WM Stress WM Resting Wall Motion Wall Motion Stress No regional wall motion The lateral wall appears to be abnormalities noted. jeevan less then during rest suggestive of lateral wall ischemia. EKG Data The baseline ECG displays normal sinus rhythm. No significant ischemic changes. Symptoms with Stress The patient experinced No chest pain . ECHO/Stress Test Echo W/Contrast Interpretation Summary The estimated ejection fraction is 60 %. Stress echo appears to be positive for exercise-induced echocardiographic courtney es of ischemia involving the lateral wall. The test is negative for exercise-induced chest pain or EKG changes of ischemia Functional capacity is normal for age Ordering Physician: Cheyenne Richards Referring Physician: Cheyenne Richards Performed By: Jocelyne Merlos, RDCS, RVT
[2023-04-03 11:09] LABS: Absolute Lymphocyte Count 1.96 X10^3/uL (0.83-4.51); Absolute Neutrophil Count 4.7 X10^3/uL (2.0-7.7); Basophil# 0.07 X10^3/uL; Eosinophil# 0.01 X10^3/uL; Eosinophils% 0.1 % (0-5); Hematocrit 46.5 % (37-47); Hemoglobin 15.3 g/dL (12.0-15.0); Lymphocyte # 1.96 X10^3/ul (0.83-4.51); Lymphocyte % 26.8 % (19-41); Mean Corp Hgb Conc 32.9 g/dL (32-36); Mean Corpuscular Volume 94.1 fL (81-99); Mean Platelet Vol. 9.8 fl (6.2-12.0); Monocyte# 0.54 X10^3/uL; Monocyte% 7.4 % (0-10); NRBC Flagged by Analyzer 0 % (0-5); Neutrophil # 4.68 X10^3/uL (2.7-7.7); Neutrophil % 64.2 % (47-70); Platelet Count 274 K/mm3 (150-450); RBC Distribution Width CV 11.9 % (11.6-14.6); RBC Distribution Width SD 41.7 fl (35.1-43.9); Red Blood Count 4.94 M/mm3 (4.2-5.4); White Blood Count 7.3 K/mm3 (4.4-11.0)
[2023-04-03 12:00] LABS: ALB/GLOB Ratio 1.4 RATIO (0.9-2.4); AST(SGOT) 15 U/L (15-37); Alanine Aminotransfer ALT/SGPT 22 U/L (13-56); Alkaline Phosphatase 69 U/L (45-117); Anion Gap 6 (5-15); BUN 7 mg/dL (7-18); BUN/Creat Ratio 8.5 RATIO (10-20); Calcium,Total 9.2 mg/dL (8.5-10.1); Chloride 103 mmol/L (98-107); Cholesterol 185 mg/dL (200); Creatinine, Serum 0.82 mg/dL (0.55-1.02); EST Glomerular Filtration Rate 74 mL/min (>60); Est Glom Filt Rate - Afr Amer 90 mL/min (>60); Globulin 2.8 g/dL (2.2-4.2); Glucose 103 mg/dL (74-106); High Density Lipoprotein 70 mg/dL; Potassium 4.5 mmol/L (3.5-5.1); Protein, Total 6.8 g/dL (6.4-8.2); Sodium Level 138 mmol/L (136-145); Triglycerides 71 mg/dL; Very Low Density Lipoprotein 14 mg/dL (5-40)
== END | disposition home or self-care (01) ==
PROVIDERS: PCP Family Medicine; Referring Provider Family Medicine; Visit Provider Family Medicine
DX: R07.9 Chest pain, unspecified (principal); R06.09 Other forms of dyspnea
CPT/HCPCS: 36415; 80053; 80061; 85025; 93017; 93350; Q9957; A4216; C8928

== ENCOUNTER → 2023-05-22 | Outpatient (CLI) | payer MEDICARE, MEDICAID, SELFPAY ==
--- NOTE | 2023-05-22 11:10 | RAD_ITS ---
EXAM: XR CHEST, 2 VIEWS CLINICAL INDICATION: sob -- for heart cath TECHNIQUE: Frontal and lateral views of the chest. COMPARISON: 06/07/2022 FINDINGS: LUNGS AND PLEURAL SPACES: Lungs are hyperinflated. There are emphysematous changes in the apices. No pneumothorax. No effusion. HEART: Unremarkable. Cardiac silhouette not enlarged. MEDIASTINUM: Central airways and mediastinal contour are unremarkable. BONES/JOINTS: There is orthopedic hardware overlying the cervical spine. No acute fracture. SOFT TISSUES: Unremarkable. RAD/Chest PA and Lateral IMPRESSION: Pulmonary hyperinflation with emphysematous change in the lung apices. There is no acute abnormality. Electronically Signed: Nimesh Rios MD at 23:16 EST ,
--- OUTSIDE RECORDS SUMMARY | 2023-05-22 11:45 | XMS RPT_ITS | CCD ---
Author Name Unknown Address [address] [place] [address] [address] [place] [id number] Organization [facility] Care Team Providers Care Histology Aide Name Role Phone PEDRO LUIS ORDOÑEZ Attending LINDA Mckenzie Primary Care Unavailable Allergies Allergy Classification Reported Allergen(s) Allergy Type Date of Onset Reaction(s) Facility (1 source) NSAIDs; Translations: [NSAIDS (NON-STEROIDAL ANTI-INFLAMMATOR Y DRUG)] Propensity to adverse reactions to drug (disorder) [facility] Repository Results Test Name Value Interpretation Reference Range Facil ity Encounters Encounter Date Encounter Type Care Provider Facility Start: 09-09-2021 End: 09-09-2021 Emergency department patient visit PEDRO LUIS ORDOÑEZ [facility] Payers Date Payer Category Payer Medicaid [id number] 2021 Medicare [id number] 1955 Unknown [id number] Summary Purpose Family History No Family History Records Found Advance Directives No Advanced Directives Records Found Additional Source Comments INFORMATION SOURCE (unrecogn ized section and content) FOR RECORDS PERTAINING TO PATIENTS WHO ARE OR HAVE BEEN ENROLLED IN A CHEMICAL DEPENDENCY/SUBSTANCEABUSE PROGRAM, SOME INFORMATION MAY BE OMITTED. This clinical summary was aggregated from multiple sources. Caution should be exercised in using it in the provision of clinical care. This summary normalizes information from multiple sources, and as a consequence, information in this document may materially change the coding, format and clinical context of patient data. In addition, data may be omitted in some cases. CLINICAL DECISIONS SHOULD BE BASED ON THE PRIMARY CLINICAL RECORDS. [facility] [employer] [facility]. provides no warranty or guarantee of the accuracy or completeness of information in this document.
[2023-05-22 12:04] LABS: Absolute Lymphocyte Count 1.79 X10^3/uL (0.83-4.51); Absolute Neutrophil Count 8.6 X10^3/uL (2.0-7.7); Basophil# 0.06 X10^3/uL; Basophil% 0.5 % (0-1); Hemoglobin 15.3 g/dL (12.0-15.0); Lymphocyte # 1.79 X10^3/ul (0.83-4.51); Lymphocyte % 15.6 % (19-41); Mean Corpuscular Volume 91.1 fL (81-99); Mean Platelet Vol. 10.2 fl (6.2-12.0); Monocyte# 0.87 X10^3/uL; Monocyte% 7.6 % (0-10); NRBC Flagged by Analyzer 0 % (0-5); Neutrophil # 8.61 X10^3/uL (2.7-7.7); Neutrophil % 75.3 % (47-70); Platelet Count 353 K/mm3 (150-450); RBC Distribution Width CV 11.6 % (11.6-14.6); RBC Distribution Width SD 38.7 fl (35.1-43.9); Red Blood Count 4.94 M/mm3 (4.2-5.4); White Blood Count 11.5 K/mm3 (4.4-11.0)
[2023-05-22 13:32] LABS: Anion Gap 5 (5-15); BUN 5 mg/dL (7-18); BUN/Creat Ratio 5.8 RATIO (10-20); Calcium,Total 9.8 mg/dL (8.5-10.1); Chloride 100 mmol/L (98-107); Creatinine, Serum 0.86 mg/dL (0.55-1.02); EST Glomerular Filtration Rate 70 mL/min (>60); Est Glom Filt Rate - Afr Amer 85 mL/min (>60); Glucose 122 mg/dL (74-106); Potassium 4.1 mmol/L (3.5-5.1); Sodium Level 133 mmol/L (136-145)
== END | disposition home or self-care (01) ==
LOC: RAD 11:09
PROVIDERS: PCP Family Medicine; Referring Provider Internal Medicine Cardiovascular Disease; Visit Provider Internal Medicine Cardiovascular Disease
DX: R94.39 Abnormal result of other cardiovascular function study (principal); R06.02 Shortness of breath; R07.9 Chest pain, unspecified
CPT/HCPCS: 36415; 71046; 80048; 85025

== ENCOUNTER 2023-05-31 10:19 | Day surgery (SDC) | payer MEDICARE, MEDICAID, SELFPAY ==
[2023-05-30 07:21] VITALS: BMI 23.6
--- NOTE | 2023-05-31 11:38 | CL.D_ITS ---
Patient Name: ARIA PENN Study Date: 05/31/2023 Performing: Dominic Evans MD Ht: 67 inches 170.18 cm : 1955 Wt: 150.99 lbs 68.49 kg Age: 67 Gender: female BSA: 1.79 PROCEDURE(S) PERFORMED [id number])C/COR CLINICAL PROFILE AND INDICATIONS Indications: Suspected CAD Heart Failure: None Stress/Imaging Stress Echocardiogram: Yes Result: Positive Intermediate RiskStress Echocardiogram: Positive Intermediate Risk CONCLUSIONS 50% Prox OM1 Mild disease Prox LAd RECOMMENDATIONS Risk factor modification DESCRIPTION OF PROCEDURE The patient arrived to the procedure lab. The risks and benefits of the procedure as well as a full description of our services here and current unavailability of surgical backup were fully explained to the patient and/or their significant other prior to the catheterization. The Timeout was completed, verifying the correct patient and procedure. The patient's procedural site was prepped and draped in the usual fashion. Local anesthetic was given subcutaneously to right radial region with Lidocaine 2%. Using a modified Seldinger technique, arterial access was obtained via the right radial artery, a 6Fr sheath was inserted. Left Coronary Artery selective angiography was performed in multiple views using a 5 Fr. 4.0 [place] catheter. Right Coronary Artery selective angiography was then performed in multiple views using a 5 Fr. 4.0 [place] catheter.The arterial sheath was pulled and a TR Band was applied for hemostasis CORONARY ANGIOGRAPHY DOMINANCE: Right Dominant LEFT ANTERIOR DESCENDING ARTERY: LAD: Tubular 30% Proximal lesion in LAD OM 1: Tubular 50% Proximal lesion in MARG1 Luminal Irregularities 40% Mid lesion in MARG1 OM 2: Tubular 50% Proximal lesion in MARG1 Luminal Irregularities 40% Mid lesion in MARG1 RIGHT CORONARY ARTERY: RCA: Luminal Irregularities 10% Proximal lesion in RCA COMPLICATIONS No Complications PROCEDURE MEDICATIONS Versed 1 mg IV Fentanyl 50 mcg IV Oxygen: 2 L/min via nasal cannula Heparin given IA 05/31/2023 11:20:23 Verapamil 2.5mg, Ntg 200mcgs, 2000 units of Heparin given IA 05/31/2023 11:20:23 IV Bolus: .9 NaCl 250 ml total 05/31/2023 11:11:15 SUMMARY OF HEMODYNAMIC DATA Time AIR REST ECG 10:38:19 ECG 11:00:30 AO 92/66 (78) SA 11:22:54 Signed By Dominic Evans MD On 05/31/2023 11:37:17 Dominic Evans MD
== END 2023-05-31 13:00 | disposition home or self-care (01) ==
LOC: CLSP 10:20
PROVIDERS: PCP Family Medicine; Referring Provider Internal Medicine Cardiovascular Disease; Visit Provider Internal Medicine Cardiovascular Disease
DX: I25.10 Atherosclerotic heart disease of native coronary artery without angina pectoris (principal); J44.9 Chronic obstructive pulmonary disease, unspecified; F32.A Depression, unspecified; F41.1 Generalized anxiety disorder; F17.210 Nicotine dependence, cigarettes, uncomplicated; Z79.82 Long term (current) use of aspirin; Z79.899 Other long term (current) drug therapy; Z86.16 Personal history of COVID-19
CPT/HCPCS: 93454; 99152; 99153; J7040; Q9967; C1769; C1894

== ENCOUNTER → 2023-06-02 | Outpatient (CLI) | payer MEDICARE, MEDICAID, SELFPAY ==
[2023-06-07 20:29] LABS: HPV Reflexed? NOT INDICATED
== END | disposition home or self-care (01) ==
LOC: LABSPEC 15:42
PROVIDERS: PCP Family Medicine; Referring Provider Family Medicine; Visit Provider Family Medicine
DX: Z12.4 Encounter for screening for malignant neoplasm of cervix (principal)
CPT/HCPCS: 88175; G0145

== ENCOUNTER → 2023-07-07 | Outpatient (CLI) | payer MEDICARE, MEDICAID, SELFPAY ==
--- NOTE | 2023-07-07 13:38 | ECHOD_ITS ---
Reason For Study: SOB Procedure This was a 2D Doppler, Color Flow transthoracic echocardiogram. Exam performed in department. Left Ventricle Normal size and thickness. The left ventricular ejection fraction is 65 %. Diastolic function is indeterminate. Right Ventricle Normal right ventricle. Atria The left and right atria are normal. Aneurysmal atrial septum. Bubble contrast study is negative for PFO/ASD. Mitral Valve Minimal prolapse of the posterior mitral leaflet. Trace mitral valve regurgitation. Tricuspid Valve Trivial tricuspid valve insufficiency. Right ventricular systolic pressure estimated to be 48 mmHg. Aortic Valve Aortic sclerosis, no stenosis. Pulmonic Valve The pulmonic valve is not well visualized. Great Vessels Normal sized aortic root. Pericardium/Pleural No pericardial effusion. Medication Performed a rapid injection of agitated mix of 9 cc saline and 1cc air to assess for atrial septal defect. MMode/2D Measurements & Calculations LVIDd: 4.3 cm IVSd: 0.83 cm Ao root diam: 2.8 cm LVIDs: 2.8 cm LVPWd: 0.85 cm RVDd: 3.8 cm FS: 35.6 % LAV(MOD-bp): 16.3 ml LVAd ap4: 17.5 cm2 SV(MOD-sp4): 29.5 ml LAV(MOD-bp) Indexed: 9.1 ml/m2 LVLd ap4: 6.0 cm LAV(MOD-sp2): 17.4 ml EDV(MOD-sp4): 42.6 ml LAV(MOD-sp4): 15.2 ml EDV(sp4-el): 43.0 ml LVAs ap4: 8.8 cm2 LVLs ap4: 5.0 cm ESV(MOD-sp4): 13.2 ml ESV(sp4-el): 13.1 ml EF(MOD-sp4): 69.1 % EF(sp4-el): 69.6 % SV(sp4-el): 29.9 ml LA A4 area: 9.0 cm2 LA dimension(2D): 2.7 cm RA A4 area: 9.7 cm2 TAPSE: 1.9 cm Time Measurements MV dec time: 0.32 sec Doppler Measurements & Calculations MV E max tito: 48.5 cm/sec Lat Peak E' Tito: 9.2 cm/sec Med Peak E' Tito: 7.3 cm/sec MV A max tito: 51.9 cm/sec E/E' lat: 5.2 E/E' med: 6.6 MV E/A: 0.94 MV dec slope: 152.8 cm/sec2 Ao V2 max: 128.0 cm/sec LV V1 max: 98.8 cm/sec Ao max P.5 mmHg LV V1 max P.9 mmHg Ao V2 mean: 97.0 cm/sec Ao mean P.1 mmHg Ao V2 VTI: 26.2 cm PA V2 max: 73.5 cm/sec TR max tito: 288.6 cm/sec TR max P.3 mmHg ECHO/Echo Complete Interpretation Summary The left ventricular ejection fraction is 65 %. Diastolic function is indeterminate. Aneurysmal atrial septum. Bubble contrast study is negative for PFO/ASD. Minimal prolapse of the posterior mitral leaflet.Trace mitral valve regurgitati on. Right ventricular systolic pressure estimated to be 48 mmHg. Aortic sclerosis, no stenosis. Ordering Physician: Dominic Evans Referring Physician: Cheyenne Richards Performed By: Kat Wheeler, RDCS, RVT
--- OUTSIDE RECORDS SUMMARY | 2023-07-07 18:34 | XMS RPT_ITS | CCD ---
Author Name Unknown Address [address] [place] [address] [address] [place] [id number] Organization [facility] Care Team Providers Care Product Tester Name Role Phone PEDRO LUIS ORDOÑEZ Attending [facility] Unavailable Allergies Allergy Classification Reported Allergen(s) Allergy Type Date of Onset Reaction(s) Facility (1 source) NSAIDs; Translations: [NSAIDS (NON-STEROIDAL ANTI-INFLAMMATOR Y DRUG)] Propensity to adverse reactions to drug (disorder) [facility] Repository Results Test Name Value Interpretation Reference Range Facil ity Encounters Encounter Date Encounter Type Care Provider Facility Start: 09-09-2021 End: 09-09-2021 Emergency department patient visit PEDRO LUIS ORDOÑEZ [facility] Payers Date Payer Category Payer Medicaid [id number] 2021 Medicare [id number] 1955 Unknown [id number] Summary Purpose Family History No Family History [...] BE BASED ON THE PRIMARY CLINICAL RECORDS. [facility]. provides no warranty or guarantee of the accuracy or completeness of information in this document.
== END | disposition home or self-care (01) ==
LOC: CVS 13:38
PROVIDERS: PCP Family Medicine; Referring Provider Internal Medicine Cardiovascular Disease; Visit Provider Internal Medicine Cardiovascular Disease
DX: R94.31 Abnormal electrocardiogram [ECG] [EKG] (principal); F17.200 Nicotine dependence, unspecified, uncomplicated; R07.9 Chest pain, unspecified; R06.02 Shortness of breath
CPT/HCPCS: 93306; A4216